=== PATIENT | male | born 1985 | race Caucasian/White ===

== ENCOUNTER 2022-10-23 11:08 | Day surgery (SDC) | payer BC ==
[2022-10-21 14:05] VITALS: BMI 23.7
[2022-10-23] MEDS ORDERED: PROPOFOL 60 ML ONE (12:29)
[2022-10-23] MEDS ORDERED: Lidocaine 2% MPF 10 ML AMP (For Epidural Use) ONE (12:29)
== END 2022-10-23 14:55 | disposition home or self-care (01) ==
LOC: CSHSDC 11:08
PROVIDERS: ATTEND Internal Medicine Gastroenterology
PROC: 0DJD8ZZ Inspection of Lower Intestinal Tract, Via Natural or Artificial Opening Endoscopic (ICD-10-PCS; principal; 2022-10-23)
DX: K92.1 Melena (principal); K64.9 Unspecified hemorrhoids; Z80.0 Family history of malignant neoplasm of digestive organs; F32.A Depression, unspecified; E29.1 Testicular hypofunction; Z79.899 Other long term (current) drug therapy
CPT/HCPCS: J2704